=== PATIENT | male | born 1975 | race Two or more races ===

== ENCOUNTER 2021-06-05 12:53 | Outpatient (CLI) | payer OTHER ==
[2021-06-06 08:34] VITALS: BP 123/92
--- NOTE | 2021-06-06 08:34 | SLEEP CARE CONSULTATION ---
Information from patient questionnaire entered by Doe Maradiaga MA. I have reviewed and concur with the information entered by Doe Maradiaga MA. This document represents the service I personally performed and the decisions made by me, Belem Hathaway MD, [facility]. History of Present Illness Service Date and Time: 06/05/2021 1253 Reason for Visit: New patient, Other (follow up, yearly f/u) Usual bedtime: 2200 Time it takes to fall asleep: 10 minutes Snores at night: Yes Observed to quit breathing while asleep: Yes Sleeps alone due to snoring: No Reasons for waking at night: reports: Choking, Snoring, Gasping for air, Bathroom Toss, Turn, or Twitch while sleeping: Yes Recalls having dreams: Yes Usually gets out of bed at: 0600 Feels refreshed in the morning: Yes Morning headache: No Sleepy or fatigued during the day: Yes Ever fallen asleep while driving: No Takes day naps: No Dreams during day naps: No Prior sleep studies: Yes Additional HPI information: I had the pleasure of seeing Mr. Cancino today regarding obstructive sleep apnea-hypopnea. As you know, he is a 45 year old gentleman who was diagnosed with the sleep-disordered breathing at the [facility] about 4 years ago. The AHI was 18.8, and miladis oxygen saturation, 87%. He was prescribed a CPAP device set at 5 9 cmH2O. He uses every night and all night. The compliance data show usage in 349 out of the past 365 nights, averaging 6.7 hours a night. The residual AHI is 0.5 and average air leak is 4.9 L/minute. He wears a Respironics DreamWear nasal cushion mask. He gets his supplies from [employer]. He finds the treatment beneficial, both for him and his . - Parasomnia Symptoms Ever been unable to move upon waking from sleep: No Walks in sleep: No Talks in sleep: No Ever acted out dreams in sleep: No Ever felt weak in the knees when startled or emotional: No Bothered by creepy, crawly, restless sensations in legs: No Problems with memory or concentration: Yes Subjective Initial [place] Sleepiness Scale score: 10 (2020) Social History The patient's occupation is a AM. Patient is and lives in [place]. Have you smoked in the past 12 months: No Alcohol use: Yes Alcohol amount and frequency: 5 x weekly Caffeine use: Yes Caffeine amount and frequency: daily Allergies and Home Medications Drug allergies reviewed: Yes Home medication list reviewed: Yes Review of Systems Review of systems same as previous: Yes Physical Exam Vital signs obtained and entered by: Perry MARADIAGA CMA AAPUSHPA Blood Pressure: 123/92 (right wrist) Heart Rate: 87 O2 Saturation: 98 (with mask) Height: 5 ft 8 in Weight: 240 lb Body Mass Index: 36.5 BMI Classification: Obese Impression and Plan IMPRESSION: 1. Obstructive Sleep Apnea-Hypopnea Syndrome, moderate, as previously diagnosed obstructive sleep apnea. He has good compliance. The current pressure setting appears effective but slightly uncomfortable. I will raise the pressure a little because he feels like he is not getting enough air at the beginning of the night. Plan: 1. AutoCPAP raised to 6 10 cmH2O and ramp turned off. 2. Try a ResMed N30i mask 3. Avoid alcohol, sedative and muscle relaxant around bedtime. 4. Attempt to lose weight. 5. Return for follow up in a year or earlier if there is any problem. He will be eligible for a new machine then. Follow up with Sleep Care in: 1 year Visit Type: In Office Time Spent with Patient (minutes): 15 Provider Statement: I spent 100% of the Face to Face Visit with the patient with greater than 50% spent counseling the patient and coordination of care.
== END 2021-06-05 12:54 | disposition home or self-care (01) ==
LOC: SC 12:53
PROVIDERS: ATTEND Internal Medicine Pulmonary Disease
DX: G47.33 Obstructive sleep apnea (adult) (pediatric) (principal); E66.9 Obesity, unspecified; Z68.36 Body mass index [BMI] 36.0-36.9, adult
CPT/HCPCS: 99202; 99212

== ENCOUNTER 2022-05-16 08:10 | Emergency (ER) | payer OTHER ==
--- NOTE | 2022-05-16 09:21 | XRAY Report ---
PROCEDURE: Chest 1 View X-Ray INDICATIONS: cough TECHNIQUE: One view of the chest was acquired. COMPARISON: None. FINDINGS: Surgical changes and devices: None. Lungs and pleura: Low lung volumes. No consolidation or pleural effusion. Mediastinum: Mediastinal contours appear normal. Heart size is normal. Bones and chest wall: No suspicious bony lesions. Overlying soft tissues appear unremarkable. IMPRESSION: Low lung volumes. No acute radiographic abnormality. Reviewed by: Berto Montiel MD on 05/16/2022 9:20 AM [facility] Approved by: Berto Montiel MD on 05/16/2022 9:20 AM [facility] Station ID: [id number]
[2022-05-16 09:47] LABS: B. PARAPERTUSSIS- RESP PCR PAN NOT DETECTED; B. PERTUSSIS- RESP PCR PANEL NOT DETECTED; C. PNEUMONIAE- RESP PCR PANEL NOT DETECTED; CORONAVIRUS 229E-RESP PCR NOT DETECTED; CORONAVIRUS HKU1-RESP PCR NOT DETECTED; CORONAVIRUS NL63-RESP PCR NOT DETECTED; CORONAVIRUS OC43-RESP PCR NOT DETECTED; HUMAN METAPNEUMOVIRUS NOT DETECTED; INFLUENZA B - RESP PCR PANEL NOT DETECTED; M. PNEUMONIAE- RESP PCR PANEL NOT DETECTED; PARAINFLUENZA VIRUS 1 NOT DETECTED; PARAINFLUENZA VIRUS 2 NOT DETECTED; PARAINFLUENZA VIRUS 3 NOT DETECTED; PARAINFLUENZA VIRUS 4 NOT DETECTED; RHINOVIRUS/ENTEROVIRUS NOT DETECTED; RSV- RESP PCR PANEL NOT DETECTED; SARS-CoV-2 -RESP PCR PANEL NOT DETECTED
--- NOTE | 2022-05-16 09:47 | ED Physician Documentation ---
PD HPI URI - Stated complaint Stated Complaint: SOA/COUGH - Chief complaint Chief Complaint: Resp - History obtained from History obtained from: Patient - Additional information Additional information: Patient is a 46-year-old male with no significant past medical history presenting for evaluation of 2 days of productive cough of clear sputum, nasal congestion, fever with T-max of 101.Patient recently returned from [place] after gathering with his family for Thanksgiving. He is unsure of any sick contacts. He has been using [id number] medication without any significant improvement. He has not used Tylenol or ibuprofen this morning. He denies feeling short of breath, having chest pain, dizziness.He has not received his flu shot. Review of Systems Constitutional: reports: Fever Nose: reports: Congestion Cardiac: denies: Chest pain / pressure Respiratory: reports: Cough GI: denies: Abdominal Pain, Vomiting Musculoskeletal: denies: Back pain Neurologic: denies: Headache PD PAST MEDICAL HISTORY - Past Medical History Past Medical History: Yes Neuro: Migraines - Present Medications Home Medications: Ambulatory Orders Medication Instructions Recorded Confirmed Cyclobenzaprine [Flexeril] 10 mg PO TID PRN #20 tablet 11/23/21 HYDROcod/ACETAM 5/325 [[place] 5/325] 1 - 2 tablet PO Q6H PRN #14 tablet 11/23/21 - Allergies Allergies/Adverse Reactions: Allergies Allergy/AdvReac Type Severity Reaction Status Date / Time No Known Drug Allergies Allergy Verified 05/16/22 08:21 - Social History Does the pt smoke?: No Smoking Status: Never smoker PD ED PE NORMAL - General General: Alert and oriented X 3, No acute distress, Well developed/nourished - HEENT HEENT: Atraumatic, Moist mucous membranes, Pharynx benign - Neck Neck: Supple, no meningeal sign - Cardiac Cardiac: RRR, No murmur - Respiratory Respiratory: No respiratory distress, Clear bilaterally - Abdomen Abdomen: Soft, Non tender - Derm Derm: Warm and dry - Extremities Extremities: No edema - Neuro Neuro: Normal speech Results - Vitals Vitals: Vital Signs - 24 hr 05/16/22 05/16/22 08:19 09:57 Temperature 37.8 C 37.5 C Heart Rate 86 93 Respiratory 20 16 Rate Blood Pressure 132/84 H 123/85 H O2 Saturation 100 98 Oxygen O2 Source Room air - Labs Labs: Laboratory Tests 05/16/22 08:14 Nasal Adenovirus (PCR) NOT DETECTED Nasal B. parapertussis DNA (PCR) NOT DETECTED Nasal Coronavir 229E PCR NOT DETECTED Nasal Coronavir HKU1 PCR NOT DETECTED Nasal Coronavir NL63 PCR NOT DETECTED Nasal Coronavir OC43 PCR NOT DETECTED Nasal Enterovir/Rhinovir PCR NOT DETECTED Nasal Influ A H1 2009 PCR DETECTED A Nasal Influenza B PCR NOT DETECTED Nasal Parainfluen 1 PCR NOT DETECTED Nasal Parainfluen 2 PCR NOT DETECTED Nasal Parainfluen 3 PCR NOT DETECTED Nasal Parainfluen 4 PCR NOT DETECTED Nasal RSV (PCR) NOT DETECTED Nasal B.pertussis DNA PCR NOT DETECTED Nasal C.pneumoniae (PCR) NOT DETECTED Heriberto Human Metapneumo PCR NOT DETECTED Nasal M.pneumoniae (PCR) NOT DETECTED Nasal SARS-CoV-2 (PCR) NOT DETECTED PD MEDICAL DECISION MAKING - ED course Complexity details: reviewed results, re-evaluated patient ED course: Patient with cough and fever x2 days. He has low-grade fever here but otherwise reassuring vitals. His lung sounds are clear. He has no sore throat or signs of oral infection.I respiratory panel was obtained And pending at time of discharge. Chest x-ray is clear. Patient counseled on continuing with supportive care as well as concerning symptoms to return for. Departure - Departure Disposition: 01 Home, Self Care Clinical Impression: Viral URI with cough Condition: Stable Instructions: ED Viral Syndrome Comments: Your chest x-ray is negative for signs of pneumonia. Your vital signs here are stable. Your symptoms suggest a viral respiratory illness. We are seeing a high prevalence of COVID, influenza A and RSV in our community. Your respiratory panel is pending. This will check for COVID, influenza, RSV and a number of other common cold viruses. We will notify you if it is positive for COVID. Otherwise you can check the patient portal for your results. Please continue with acetaminophen or ibuprofen as needed for fevers and body aches, plenty of fluids/hydration and rest. Return to the ER with any worsening symptoms such as difficulty breathing or vomiting. You have a Covid test pending. You need to self quarantine until the result is done and negative. Do not leave your house. Do not get near anybody. The results should be done in 48 to 72 hours. We will call with a positive result, the fastest way to get a negative result for confirmation though is to go to the hospital website at [email or web address], click on the my [facility] tab and sign up for the patient portal. If any friends or family get sick and would like to have a Covid test done, but do not have signs or symptoms that would necessitate being hospitalized, there are multiple local options for Covid testing. [facility] keeps an updated list of testing and vaccination options at: [email or web address]. Forms: Activity restrictions Discharge Date/Time: 05/16/22 10:01
[2022-05-16 09:48] LABS: INFLUENZA A H1 2009- RESP PCR DETECTED
[2022-05-16 09:57] VITALS: BP 123/85
== END 2022-05-16 10:01 | disposition home or self-care (01) ==
LOC: ED 08:10
DX: J06.9 Acute upper respiratory infection, unspecified (principal); R05.9 Cough, unspecified; Z20.822 Contact with and (suspected) exposure to COVID-19
CPT/HCPCS: 87633; 99282; 99284

== ENCOUNTER 2023-07-26 08:50 | Outpatient (CLI) | payer OTHER ==
--- NOTE | 2023-07-26 09:14 | Sleep Patient Instructions ---
Sleep Center Visit Summary - Patient Visit Information Reason for Visit: Annual visit - Patient Instructions Additional Instructions: You will continue with CPAP therapy with pressure set at 6-10 cmH2O. A supply prescription will be updated with your DME. I have added to update your CPAP as well. Please call us when you get new CPAP to schedule compliance visit. We encourage you to continue to try to lose weight. Please follow up with the sleep care office one month after obtaining new CPAP. - Clinic Information Contact: [facility] [address] [place] [address] [email or web address] T: [phone]
--- NOTE | 2023-07-26 09:20 | SLEEP CARE CONSULTATION ---
Information from patient questionnaire entered by Komal Apodaca. I have reviewed and concur with the information entered by Komal Apodaca. This document represents the service I personally performed and the decisions made by , Leah Hernandez ARNP. History of Present Illness Service Date and Time: 07/26/2023 0850 Previous diagnosis: Moderate, Obstructive Sleep Apnea-Hypopnea Syndrome AHI: 18.8 (in 2017) Reason for follow up: annual (LAST SEEN 05/2021) Equipment type: CPAP (ResMed Airsense 10; NEED MACHINE) Equipment obtained from: [employer] (getting supplies) Mask style: Nasal pillows Mask brand: Respironics (Dreamwear) Backup mask available: Yes Last cushion change: weekly Prior sleep studies: Yes HPI additional information: KERI FLORES was diagnosed to have moderate, AHI 18.8, obstructive sleep apnea-hypopnea syndrome and returned today for CPAP therapy annual follow-up. Sleep Study - Results Prior sleep studies: Yes CPAP Compliance Data - Data Reviewed with Patient Average duration of nightly device use: 6 hours 27 minutes Compliance rate %: 72 (279/365 days used) Current pressure setting (cmH2O): 6-10 Average residual AHI: 0.6 Central apnea: 0.1 Obstructive apnea: 0.1 Hypopnea: 0.3 Average large leak: 6.6 L/min Subjective Missed days of use due to: reports: travel Patient concerns: reports: mask leak noise, dry mouth, nose, throat (sometimes, dry mouth; may oral vent). denies: aerophagia, mask discomfort, air blowing in eyes, condensation in mask/hose, nasal congestion, epistaxis Observed to snore while using device: No Current pressure setting perceived as: comfortable On therapy, patient: reports: sleeping better, awakening more refreshed, being more awake and alert during the day, more rested overall. denies: drowsiness while driving Initial [place] Sleepiness Scale score: 10 (2020) Current [place] Sleepiness Scale score: 6 (07/26/23) Allergies and Home Medications Known drug allergies: No Drug allergies reviewed: Yes Home medication list reviewed: Yes (no changes) Allergy and home medication list: Allergies No Known Drug Allergies Allergy (Verified 07/24/23 09:37) Review of Systems Review of systems same as previous: Yes (NO CHANGE) Physical Exam Vital signs obtained and entered by: KOMAL Lazo MA Blood Pressure: 134/80 (RIGHT ARM) Cuff size: regular Heart Rate: 73 O2 Saturation: 97 Height: 5 ft 8 in Weight: 249 lb 12.8 oz Body Mass Index: 38.0 BMI Classification: Obese Impression and Plan 1. Obstructive Sleep Apnea-Hypopnea Syndrome, moderate, with good treatment compliance and good apnea control. On CPAP therapy, the patient has better sleep quality and is more rested overall. He has a ResMed Airsense 10 that is his original machine since 2017. The patients CPAP is over 5 years old and of reasonable use. Thus, the CPAP will be updated. The new CPAPs also have a better humidity system which could assist control of patients dryness symptoms. A DWO prescription will be made. Compliance guidelines for new device and follow up discussed. Patient's apnea severity and rationale for treatment to reduce apnea, improve sleep quality and reduce cardiovascular and cerebrovascular events was reviewed. 2. Obesity, unspecified. Currently patients BMI is 38. Obesity increases the risk of apnea, CPAP pressure requirements and overall health risks especially cardiovascular and diabetes. Thus patient is advised to lose weight. * Continue auto CPAP pressure at 6-10 cmH2O * Update machine * Update supplies * Notify me if snoring with mask or feeling that the pressure is too much or too little * Attempt to lose weight * Call this office if any problems using CPAP * Return for follow up one month after obtaining new device, or sooner if concerns arise Counseling Topics: Spare mask, Weight loss health impact Prescriptions: Auto CPAP, Device supplies Follow up with Sleep Care in: other (compliance visit) Visit Type: In Office Time Spent with Patient (minutes): 22 Provider Statement: I spent 100% of the Face to Face Visit with the patient with greater than 50% spent counseling the patient and coordination of care.
[2023-07-26 09:30] VITALS: BP 134/80; O2SAT 97
== END 2023-07-26 08:51 | disposition home or self-care (01) ==
LOC: SC 08:50
PROVIDERS: ATTEND Nurse Practitioner Family
DX: G47.33 Obstructive sleep apnea (adult) (pediatric) (principal); E66.9 Obesity, unspecified; Z68.38 Body mass index [BMI] 38.0-38.9, adult
CPT/HCPCS: 99212; 99213